=== PATIENT | male | born 1940 | race Caucasian/White ===

== ENCOUNTER 2017-10-06 08:14 | Outpatient (CLI) | payer OTHER ==
[~2017-10-06 08:14] MED LIST: ATACAND4 MG PO; COUMADIN4 MG PO; DIGOX125 MCG PO; DITROPAN XL5 MG PO; HYTRIN PO; HYTRIN2 MG PO; ISOSORBIDE MONO60 MG PO; LIPITOR40 MG PO; LOTREL 10-20 MG1 CAP PO; VYTORIN 10-20 M1 TAB PO
== END 2017-10-06 08:24 | disposition home or self-care (01) ==
LOC: TOM 08:14
DX: J44.9 Chronic obstructive pulmonary disease, unspecified (principal); Z72.0 Tobacco use; M19.91 Primary osteoarthritis, unspecified site; K46.9 Unspecified abdominal hernia without obstruction or gangrene
CPT/HCPCS: 74177; Q9965

== ENCOUNTER 2018-12-07 07:12 | Outpatient (CLI) | payer OTHER | END 2018-12-07 07:17 | disposition home or self-care (01) | LOC: MRI 07:12 | DX: M54.40 Lumbago with sciatica, unspecified side (principal) | CPT/HCPCS: 72148 ==

== ENCOUNTER 2019-02-06 08:10 | Outpatient (CLI) | payer OTHER | END 2019-02-06 08:21 | disposition home or self-care (01) | LOC: LAB 08:10 | DX: I48.1 Persistent atrial fibrillation (principal); Z79.01 Long term (current) use of anticoagulants ==